=== PATIENT | female | born 1950 | race Two or more races ===

== ENCOUNTER 2016-04-23 10:15 | Outpatient (RCR) | payer OTHER | END 2016-05-21 | disposition home or self-care (01) | LOC: PTY 10:15 | DX: M54.31 Sciatica, right side (principal); Z98.1 Arthrodesis status | CPT/HCPCS: 97035; 97110; 97140; G0283 ==

== ENCOUNTER 2016-05-23 09:10 | Outpatient (RCR) | payer OTHER | END 2016-06-18 | disposition home or self-care (01) | LOC: PTY 09:10 | DX: M54.31 Sciatica, right side (principal); Z98.1 Arthrodesis status | CPT/HCPCS: 97110; 97140; G0283 ==